=== PATIENT | female | born 1975 | race Caucasian/White ===

== ENCOUNTER 2024-09-17 15:36 | Emergency (ER) | payer SELFPAY ==
--- NOTE | 2024-09-17 16:22 | RAD REPORT ---
EXAM: Chest Single View HISTORY: CHEST PAIN COMPARISON: None. FINDINGS: LUNGS/PLEURA: Nonspecific coarsening of pulmonary interstitium. No edema or consolidation. MEDIASTINUM: The mediastinal silhouette is within normal limits. CARDIAC: The cardiac silhouette is within normal limits. UPPER ABDOMEN: No significant abnormality. BONES: No acute abnormality. LINES/TUBES/OTHER: N/A IMPRESSION: No evidence of acute cardiopulmonary disease.
[2024-09-17] MEDS ORDERED: MAGNES/ALUMIN/SIMET 30ML UCUP ONE (17:00)
[2024-09-17] MEDS ORDERED: FAMOTIDINE 20 MG/2 ML VIAL IV ONE (17:01)
[2024-09-17] MEDS ORDERED: LIDOCAINE VISCOUS 2% 10ML ORAL SOLN ONE (17:01)
[2024-09-17 17:11] LABS: Absolute Basophils 0.1 K/uL (0-0.5); Absolute Eosinophils 0.2 K/uL (0-0.5); Absolute Lymphocytes (CBC) 2.4 K/uL (0.7-4.9); Absolute Monocytes 0.5 K/uL (0.1-1.3); Absolute Neutrophil 4.4 K/uL (1.8-8.0); Basophils % 1.5 % (0-1.3); Eosinophils % 2.6 % (0-4.4); Hematocrit 44.5 % (36.0-45.0); Hemoglobin 15.8 g/dL (12.0-15.0); Lymphocytes % 31.6 % (15.3-44.8); MCH 32.3 pg (27.0-35.0); MCHC 35.4 g/dL (32.0-36.0); MCV 91.2 fL (80-100); MPV 9.4 fL (7.6-11.3); Monocytes % 6.2 % (3.3-12.3); Neutrophils % 58.1 % (41.7-73.7); Platelets 236 thou/uL (152-406); RBC Red Blood Cell Count 4.88 M/uL (3.86-4.86); Red Cell Distribution Width 14.7 % (12.1-15.2)
[2024-09-17 17:31] LABS: BUN Blood Urea Nitrogen 10 mg/dL (7-18); Bicarbonate 27 mEq/L (21-32); Glomerular Filtration Rate 107 ml/min (=/>90); Glucose Level 141 mg/dL (74-106); NT PRO-BNP 36 pg/mL (<125); Potassium 3.8 mEq/L (3.5-5.1); Sodium Level 134 mEq/L (136-145); Troponin High Sensitivity < 3.0 (<58.9)
[2024-09-17 17:32] LABS: Lipase 22 U/L (13-75)
--- NOTE | 2024-09-17 18:14 | EDPHYS ---
Physician Documentation [facility] Name: Roxanne Ding Age: 49 yrs Sex: Female : 1975 Arrival Date: 09/17/2024 Time: 15:36 Bed 2 Private MD: ED Physician Maximus Wan HPI: 09/17 17:54 This 49 yrs old Female presents to ER via Ambulatory with complaints of abd pain. rn 17:54 The patient presents with abdominal pain in the epigastric area. rn 17:54 Onset: The symptoms/episode began/occurred this morning. The symptoms radiate to chest. rn Associated signs and symptoms: Pertinent negatives: blood in stools, fever, shortness of breath, vomiting, vomiting blood. The symptoms are described as burning. Modifying factors: The symptoms are alleviated by nothing, the symptoms are aggravated by touching the area. Severity of pain: At its worst the pain was moderate in the emergency department the pain is unchanged. The patient has not experienced similar symptoms in the past. Historical: - Allergies: 15:54 No Known Allergies; cm10 - Home Meds: 15:54 None [Active]; cm10 - PMHx: 15:54 None; cm10 - PSHx: 15:54 Cholecystectomy; cm10 - Immunization history:: Adult Immunizations up to date. - Infectious Disease History:: Denies. - Social history:: Smoking status: Patient denies any tobacco usage or history of. - Family history:: not pertinent. - Hospitalizations: : No recent hospitalization is reported. ROS: 18:11 Constitutional: Negative for fever, chills, and weight loss, Cardiovascular: Positive rn for chest pain that radiates from abdomen Respiratory: Negative for shortness of breath, cough, wheezing, and pleuritic chest pain, Abdomen/GI: Positive for epigastric abdominal pain and burning sensation MS/Extremity: Negative for injury and deformity, Neuro: Negative for headache, weakness, numbness, tingling, and seizure, Exam: 18:11 Constitutional: This is a well developed, well nourished patient who is awake, alert, rn and in no acute distress. Cardiovascular: Regular rate and rhythm. No pulse deficits. Respiratory: No increased work of breathing, no retractions or nasal flaring. Abdomen/GI: Soft, mild epigastric tenderness. No rebound or guarding. Negative Almanza. 18:24 ECG was reviewed by the Attending Physician. rn Vital Signs: 15:53 BP 139 / 66; Pulse 65; Resp 15; Temp 98.2; Pulse Ox 99% on R/A; Weight 89.36 kg; Height cm10 5 ft. 5 in. ; Pain 10/10; 17:38 BP 151 / 81; Pulse 60; Resp 16; Pulse Ox 97% ; bp 17:59 BP 151 / 81; Pulse 62; Resp 18; Pulse Ox 99% on R/A; ld1 15:53 Body Mass Index 32.78 (89.36 kg, 165.1 cm) cm10 15:53 Pain Scale: Adult cm10 MDM: 15:48 Medical Screening Exam initiated rn 18:11 Differential diagnosis: gastritis, gastroesophageal reflux disease, non-specific abd rn pain, pancreatitis, Peptic Ulcer Disease, Esophagitis, ulcer. Data reviewed: vital signs, nurses notes, lab test result(s), and as a result, I will discharge patient. Counseling: I had a detailed discussion with the patient and/or guardian regarding the historical points, exam findings, and any diagnostic results supporting the discharge/admit diagnosis, lab results, the need for outpatient follow up, to return to the emergency department if symptoms worsen or persist or if there are any questions or concerns that arise at home. Response to treatment: the patient's symptoms have markedly improved after treatment, and as a result, I will discharge patient. Special discussion: Based on the patient's Hx, exam, and Dx evaluation, there is no indication for emergent surgery or inpatient Tx. It is understood by the patient/guardian that if the Sx's persist or worsen they need to return immediately for re-evaluation. I discussed with the patient/guardian in detail that at this point there is no indication for admission to the hospital. It is understood, however, that if the symptoms persist or worsen the patient needs to return immediately for re-evaluation. Based on the history and exam findings, there is no indication for further emergent testing or inpatient evaluation. I discussed with the patient/guardian the need to see the care professionals for further evaluation of the symptoms. ED course: Patient shows improvement after GI cocktail and antacid medication. No acute findings and workup. No indication for emergent imaging. Patient states that she has been popping Tums frequently lately due to heartburn. Symptoms and presentation consistent with gastritis/esophagitis/peptic ulcer disease. ECG is normal without ischemia and troponin negative. Chest x-ray images negative for pneumonia or pneumothorax per my interpretation. I have personally reviewed all of the results, including but not limited to blood tests and imaging deemed necessary to safely discharge this patient at this time. All results given to and printed out for patient. I personally went over all the results with the patient and answered all questions. Patient will follow-up with PCP and or specialist as discussed. Return precautions given and understood.. 09/17 15:48 Order name: Basic Metabolic Panel; Complete Time: 17:33 rn 09/17 15:48 Order name: CBC with Diff; Complete Time: 17:33 rn 09/17 15:48 Order name: NT PRO-BNP; Complete Time: 17:33 rn 09/17 15:48 Order name: Troponin HS; Complete Time: 17:33 rn 09/17 17:07 Order name: Lipase; Complete Time: 17:33 EDMS 09/17 15:48 Order name: XRAY Chest (1 view); Complete Time: 16:27 rn 09/17 15:48 Order name: Cardiac monitoring; Complete Time: 16:54 rn 09/17 15:48 Order name: EKG - Nurse/Tech; Complete Time: 15:56 rn 09/17 15:48 Order name: IV Saline Lock; Complete Time: 16:54 rn 09/17 15:48 Order name: Labs collected and sent; Complete Time: 16:54 rn 09/17 15:48 Order name: O2 Per Protocol; Complete Time: 16:54 rn 09/17 15:48 Order name: O2 Sat Monitoring; Complete Time: 16:54 rn EC:24 Rate is 70 beats/min. Rhythm is regular. QRS [place] is Normal. [place] interval is normal. QRS rn interval is normal. QT interval is normal. No Q waves. T waves are Normal. No ST changes noted. Clinical impression: Normal ECG. Interpreted by me. Reviewed by me. Administered Medications: 17:05 Drug: Famotidine IVP 20 mg IVP once; dilute with 10 mL 0.9% NaCl; give over 2 minutes bp Route: IVP; Site: right forearm; 18:29 Follow up: Response: No adverse reaction bp 17:06 Drug: GI Cocktail without - (Maalox PO 30 ml, Lidocaine Mucous Membrane 2 % 15 bp ml) PO once Route: PO; 18:29 Follow up: Response: No adverse reaction bp Disposition Summary: 09/17/24 18:14 Discharge Ordered Notes: Location: Home rn Problem: an ongoing problem rn Symptoms: have improved rn Condition: Stable rn Diagnosis - Acute gastritis without bleeding rn - Esophagitis, unspecified rn Followup: rn - With: Private Physician - When: As needed - Reason: Recheck today's complaints, Re-evaluation by your physician Discharge Instructions: - Discharge Summary Sheet rn - Esophagitis rn - Gastritis, Adult rn Forms: - Medication Reconciliation Form rn - Antibiotic learning disabilities teacher - Prescription Opioid Use rn - Patient Portal Instructions rn - Leadership Thank You Letter rn Prescriptions: - Protonix 40 mg Oral Tablet - take 1 tablet ORAL route once daily; 30 tablet; Refills: 0, Product Selection rn Permitted - Tramadol 50 mg Oral tablet - take 1 tablet ORAL route every 8 hours As needed as needed; 15 tablet; Refills: rn 0, Product Selection Permitted Signatures: Dispatcher [employer] EDMS Maximus Wan MD MD rn Peltier, Brian, RN RN bp Martinez, Clarissa, RN RN cm10 Corrections: (The following items were deleted from the chart) 15:49 15:49 BASIC METABOLIC PANEL+C.LAB.BRZ ordered. EDMS EDMS 15:49 15:49 CBC+H.LAB.BRZ ordered. EDMS EDMS 15:49 15:49 PROBNP+C.LAB.BRZ ordered. EDMS EDMS 15:49 15:49 Troponin High Sensitivity+C.LAB.BRZ ordered. EDMS EDMS 15:49 15:49 Chest Single View+RAD.RAD.BRZ ordered. EDMS EDMS 17:06 16:02 LIPASE+C.LAB.BRZ ordered. EDMS EDMS
--- NOTE | 2024-09-17 18:14 | ER ---
Nurse's Notes [facility] Name: Roxanne Ding Age: 49 yrs Sex: Female : 1975 Arrival Date: 09/17/2024 Time: 15:36 Bed 2 Private MD: Diagnosis: Acute gastritis without bleeding;Esophagitis, unspecified Presentation: 09/17 15:53 Chief complaint: Patient states: Epigastric pain that radiates to back onset this cm10 morning. pt states that she woke up this morning with the pain. Pt describes the pain as a burning pain. Coronavirus screen: Client denies travel out of the [place] in the last 14 days. Ebola Screen: Patient denies exposure to infectious person. Initial Sepsis Screen: Does the patient meet any 2 criteria? No. Patient's initial sepsis screen is negative. Does the patient have a suspected source of infection? No. Patient's initial sepsis screen is negative. Risk Assessment: Do you want to hurt yourself or someone else? Patient reports no desire to harm self or others. Onset of symptoms was September 17, 2024. 15:53 Method Of Arrival: Ambulatory cm10 15:53 Acuity: CIPRIANO 2 cm10 Triage Assessment: 15:54 General: Appears in no apparent distress. uncomfortable, Behavior is calm, cooperative. cm10 Neuro: No deficits noted. Level of Consciousness is awake, alert, obeys commands, Oriented to person, place, time, situation, Appropriate for age. Cardiovascular: Patient's skin is warm and dry. Chest pain is described as Pain is 10 out of 10 on a pain scale. quality is burning, pressure, is located in epigastric area radiates back began This morning. Respiratory: No deficits noted. Airway is patent Respiratory effort is even, unlabored, Respiratory pattern is regular, symmetrical. Historical: - Allergies: 15:54 No Known Allergies; cm10 - Home Meds: 15:54 None [Active]; cm10 - PMHx: 15:54 None; cm10 - PSHx: 15:54 Cholecystectomy; cm10 - Immunization history:: Adult Immunizations up to date. - Infectious Disease History:: Denies. - Social history:: Smoking status: Patient denies any tobacco usage or history of. - Family history:: not pertinent. - Hospitalizations: : No recent hospitalization is reported. Screenin:39 [facility] ED Fall Risk Assessment (Adult) History of falling in the last 3 months, bp including since admission No falls in past 3 months (0 pts) Confusion or Disorientation No (0 pts) Intoxicated or Sedated No (0 pts) Impaired Gait No (0 pts) Mobility Assist Device Used No (0 pt) Altered Elimination No (0 pt) Score/Fall Risk Level 0 - 2 = Low Risk Oriented to surroundings. Abuse screen: Denies threats or abuse. Denies injuries from another. Nutritional screening: No deficits noted. Tuberculosis screening: No symptoms or risk factors identified. Assessment: 16:20 General: Appears in no apparent distress. Behavior is calm, cooperative, appropriate bp for age. 16:20 Pain: Pain radiates to chest Pain began 1 day ago. bp 17:39 Reassessment: Patient appears in no apparent distress at this time. Patient is alert, bp oriented x 3, equal unlabored respirations, skin warm/dry/pink. 17:59 Reassessment: Patient appears in no apparent distress at this time. Patient and/or ld1 family updated on plan of care and expected duration. Pain level reassessed. Patient is alert, oriented x 3, equal unlabored respirations, skin warm/dry/pink. Vital Signs: 15:53 BP 139 / 66; Pulse 65; Resp 15; Temp 98.2; Pulse Ox 99% on R/A; Weight 89.36 kg; Height cm10 5 ft. 5 in. ; Pain 10/10; 17:38 BP 151 / 81; Pulse 60; Resp 16; Pulse Ox 97% ; bp 17:59 BP 151 / 81; Pulse 62; Resp 18; Pulse Ox 99% on R/A; ld1 15:53 Body Mass Index 32.78 (89.36 kg, 165.1 cm) cm10 15:53 Pain Scale: Adult cm10 ED Course: 15:39 Patient arrived in ED. al6 15:48 Maximus Wan MD is Attending Physician. rn 15:54 Triage completed. cm10 15:54 Arm band placed on right wrist. Patient placed in an exam room, on a stretcher. cm10 15:55 EKG done, by ED staff, reviewed by Maximus Wan MD. cm10 16:18 XRAY Chest (1 view) In Process Unspecified. EDMS 16:19 Julio Cesar Crockett, RN is Primary Nurse. bp 16:55 Initial lab(s) drawn, by me, sent to lab. Inserted saline lock: 22 gauge in right bp forearm, using aseptic technique. Blood collected. Flushed with 10 mL NS. 17:39 Patient has correct armband on for positive identification. Client placed on continuous bp cardiac and pulse oximetry monitoring. NIBP monitoring applied. gis mapping technician on. Pulse ox on. NIBP on. 18:29 No provider procedures requiring assistance completed. IV discontinued, intact, bp bleeding controlled, No redness/swelling at site. Pressure dressing applied. Patient maintains SpO2 saturation greater than 95% on room air. 18:30 Provided Education on: NA. bp Administered Medications: 17:05 Drug: Famotidine IVP 20 mg IVP once; dilute with 10 mL 0.9% NaCl; give over 2 minutes bp Route: IVP; Site: right forearm; 18:29 Follow up: Response: No adverse reaction bp 17:06 Drug: GI Cocktail without - (Maalox PO 30 ml, Lidocaine Mucous Membrane 2 % 15 bp ml) PO once Route: PO; 18:29 Follow up: Response: No adverse reaction bp Medication: 18:30 VIS not applicable for this client. bp Outcome: 18:14 Discharge ordered by . rn 18:29 Discharged to home ambulatory, with family, bp 18:29 Condition: stable 18:29 Discharge instructions given to patient, Instructed on discharge instructions, follow up and referral plans. medication usage, Demonstrated understanding of instructions, follow-up care, medications, Prescriptions given X 2, 18:30 Patient left the ED. bp Signatures: Dispatcher [employer] EDMS Maximus Wan MD MD rn Peltier, Brian, RN RN bp Eliane Vinson RN RN ld1 Maddy Watts, RN RN cm10 Savanna Boyer al6
[2024-09-17 18:50] VITALS: TEMP 98.2
[2024-09-17 18:56] VITALS: BP 151/81
[2024-09-17 18:57] VITALS: O2SAT 99
--- NOTE | 2024-09-19 12:18 | EKG ---
Test Date: 2024-09-17 Test Time: 15:43:13 Pump Servicer Helper: CHANG MEASUREMENT RESULTS: Intervals: Rate: 70 ME: 174 QRSD: 98 QT: 414 QTc: 447 Pope: P: 63 ME: 174 QRS: 68 T: 54 INTERPRETIVE STATEMENTS: Normal sinus rhythm Normal ECG No previous ECG available for comparison Electronically Signed On 09-19-24 12:15:22 FALAFEL CART COOK by Leon Steward
== END 2024-09-17 18:30 | disposition home or self-care (01) ==
LOC: ER 15:36
DX: K29.00 Acute gastritis without bleeding (principal); K20.90 Esophagitis, unspecified without bleeding
CPT/HCPCS: 36415; 71045; 80048; 83690; 83880; 84484; 85025; 93005; 96374; 99285